=== PATIENT | male | born 1945 ===

== ENCOUNTER 2017-09-17 06:52 | Day surgery (SDC) | payer MEDICARE ==
[2017-09-12 10:34] VITALS: BMI 23.3
[2017-09-17 08:18] LABS: BASO # 0.01 K/mm3 (0.0-2.0); BASO % 0.2 % (0.0-3.0); EOS # 0.2 (0.0-0.7); EOS % 3.4 % (1.5-5.0); GRAN # 2.93 (1.4-6.5); HEMOGLOBIN 12.7 g/dL (14.0-18.0); LYMPH # 2.4 (1.2-3.4); LYMPH % 39.7 % (22.0-35.0); MEAN CELL VOLUME 92.9 fl (80.0-105.0); MEAN CORPUSCULAR HEMOGLOBIN 31.1 pg (25.0-35.0); MEAN CORPUSCULAR HGB CONC 33.5 g/dl (31.0-37.0); MEAN PLATELET VOLUME 11.5 fl (7.0-11.0); MONO # 0.5 (0.1-0.6); MONO % 8.7 % (1.0-6.0); RBC 4.08 10^6/uL (3.5-6.1); RED CELL DISTRIBUTION WIDTH 12.7 % (11.5-14.5); WHITE BLOOD COUNT 6.1 10^3/ul (4.5-11.0)
[2017-09-17 08:29] LABS: BLOOD UREA NITROGEN 16 mg/dL (7-21); GFR AFRICAN-AMERICAN > 60; GFR NON-AFRICAN AMERICAN > 60; HDL CHOLESTEROL 39 mg/dL (29-60)
[2017-09-17 08:31] LABS: INR 1.14 (0.93-1.08); PARTIAL THROMBOPLASTIN TIME 26.9 Seconds (25.1-36.5); PROTHROMBIN TIME 13.2 SECONDS (9.4-12.5)
[2017-09-17 08:40] LABS: LDL CHOLESTEROL 62 mg/dL (0-129)
--- NOTE | 2017-09-17 08:40 | HP ---
REASON FOR ADMISSION: Pacemaker generator change, end of the life of pacemaker. BRIEF CLINICAL HISTORY: This is a 72-year-old male with the past medical history significant for open heart surgery, status post CABG x2, sick sinus syndrome, status post pacemaker, aortic aneurysm, who lost follow up after 2008 came back on 10/2016, underwent echo and stress test that was essentially negative. Recently interrogation pacemaker revealed end of the life of pacemaker where patient was scheduled for elective pacemaker generator change. Denies chest pain, shortness of breath or any palpitation. PAST MEDICAL HISTORY: Significant for coronary artery disease, diabetes, hypertension, hyperlipidemia, history of coronary artery disease, status post CABG twice, history of pacemaker, status post end of life of pacemaker. PREVIOUS CARDIAC WORKUP: As follows; Holter dated 11/06/2017, it shows normal sinus, heart rate 60 to 80. No significant arrhythmia noted. Patient underwent stress test on 12/21/2016 that showed an ejection fraction of 55%. No ischemia. No change from before. Patient underwent echocardiogram on 11/03/2016, that shows ejection fraction 50%, mild MR, trace to mild AR and trace to mild tricuspid regurgitation. Patient underwent SONIA, PVR dated 12/27/2016, no evidence of peripheral arterial disease. REVIEW OF SYSTEMS: As per HPI. CURRENT MEDICATIONS: Patient is taking ferrous sulfate one p.o. daily; Zetia 10 mg daily; atorvastatin 10 mg daily; aspirin 81 mg daily; ascorbic acid 1000 g daily; vitamin A1 tablet daily; metoprolol 25 mg daily; levothyroxine daily; Tambocor 50 mg daily, this is flecainide; tramadol 50 mg daily; metformin 500 mg daily; amlodipine, Norvasc 10 mg daily; meloxicam 50 mg daily; losartan 100 mg daily. PHYSICAL EXAMINATION: As follows; VITAL SIGNS: Height of the patient 5 feet 5 inches, weight of the patient is 140 pounds, body mass index 23.3 kg/m2. Rest of the examination as follows; heart rate 60, blood pressure 122/59. HEENT: PERRLA. Extraocular muscles are intact. NECK: Supple. No carotid bruits or thyromegaly. CHEST: Clear to auscultation. HEART: S1 and S2 regular. ABDOMEN: Soft. EXTREMITIES: Clubbing and cyanosis negative. IMPRESSION: A 72-year-old male with past medical history significant for coronary artery disease, status post coronary artery bypass graft twice, history of pacemaker, status post end of life of the pacemaker, diabetes, hypertension, hyperlipidemia, admitted for pacemaker generator change because of the end of the life of pacemaker. RECOMMENDATION: We will change the pacemaker. Further recommendation after the pacemaker generator change. We will follow with you. Thank you Dr. Delaney for providing us the opportunity in taking care of the patient, . Argelia Fischer MD
[2017-09-17] MEDS ORDERED: Lidocaine 2% Inj (20ml) ONE (09:28)
[2017-09-17] MEDS ORDERED: Midazolam 2 MG/2 ML VIAL ONE (09:55)
[2017-09-17 11:16] VITALS: O2SAT 96
[2017-09-17] MEDS ORDERED: Sodium Chloride 0.9% 1,000 ML IV SCH (11:30)
--- NOTE | 2017-09-17 11:31 | CARD ---
APPROVED REPORT EKG Measurement Heart [id number] <Conclusion> Predominently V. Paced rhythm
[2017-09-17 12:01] VITALS: RESP 20; TEMP 97.4
--- NOTE | 2017-09-17 12:07 | CPOSTOP ---
DATE: 09/17/2017 CARDIOVASCULAR LAB POSTPROCEDURE NOTE DICTATING PHYSICIAN: Argelia Fischer MD SENIOR PRODUCT DEVELOPMENT SCIENTIST: Sue land survey technician. TYPE OF ANESTHESIA: Moderate conscious sedation. PRE-PROCEDURE DIAGNOSIS: End of the life of the pacemaker. PROCEDURE PERFORMED: Pacemaker generator change. FINDINGS: End of the life of pacemaker, normal functioning pacemaker lead. FINAL DIAGNOSIS: End of the life of pacemaker. VASCULAR ACCESS SITE: Left side of the chest. CLOSURE DEVICE: Dermabond applied. TOTAL RADIATION DOSE: 60.26 milligray unit. TOTAL FLUORO TIME: 0.2 minute. Argelia Fischer MD
[2017-09-17 12:26] VITALS: BP 110/53; PULSE 66
--- NOTE | 2017-09-17 13:10 | CARD ---
APPROVED REPORT EKG Measurement Heart [id number]-19 [id number] <Conclusion> Electronic atrial pacemaker: 100% A. Paced Rightward axis Nonspecific intraventricular block Cannot rule out Anterior infarct, age undetermined STTW changes c/w ischemia Prolonged QTc
--- NOTE | 2017-09-17 15:47 | CARD ---
APPROVED REPORT HISTORY The Patient is a 72 year-old male with a history of CAD, S/p PPM and end of Life of PPM PROCEDURES Repalcement of Dual chamber PPM INDICATIONS End of life of PPM CONSCIOUS SEDATION AGENTS Versed Fentanyl IMPLANTED DEVICES Medtronic AGUSTIN IS-1 EXPLANTED DEVICES Medtronic OPERATIVE NOTE The patient was brought to the Cardiac Catheterization Laboratory in a fasting state and was prepped and draped in a sterile manner. The left subclavian region was infiltrated with 2% Lidocaine subcutaneously. A transverse incision was made in the left subclavian area. The subcutaneous pocket was opened and the pulse generator was removed. The ventricular lead wire was exposed via blunt dissection. The ventricular lead was interrogated and Atrial Lead was interogated and results are as follows P Wave...2.7 Threshold...0.9 Resistance...502 Ohms THE VENTRICULAR ELECTRODE PARAMETERS R WAVE 6.2 THRESHOLD1.6 RESISTANCE 621 setscrews firmly tightened to insure adequate contact and stability. The lead and pulse generator were placed into the subcutaneous pocket. Sharp and sponge counts were confirmed to be correct. At this time the pocket was closed subcutaneously with a Vicryl 2.0 and the skin was closed with a Vicryl 4.0 .The operative site was dressed in sterile fashion. The patient tolerated the procedure well and was transferred tot floor in stable condition. COMPLICATIONS The patient tolerated the procedure well and there were no complications associated with the procedure. CONCLUSION Successful Gen change DDDR ( Medtronic ADAPTA IS -! ) Arrangement has been made for F/u in [facility]ace maker clinic. CC; Matias Bethea MD
== END 2017-09-17 13:20 | disposition home or self-care (01) ==
LOC: CATH 06:52 → SDSVAS 06:52 → CATH 13:20
PROVIDERS: ATTEND Internal Medicine Cardiovascular Disease
DX: Z45.010 Encounter for checking and testing of cardiac pacemaker pulse generator [battery] (principal); E11.9 Type 2 diabetes mellitus without complications; I10 Essential (primary) hypertension; E78.5 Hyperlipidemia, unspecified; I25.10 Atherosclerotic heart disease of native coronary artery without angina pectoris; Z95.1 Presence of aortocoronary bypass graft; I49.5 Sick sinus syndrome; Z79.82 Long term (current) use of aspirin; Z79.84 Long term (current) use of oral hypoglycemic drugs
CPT/HCPCS: 33228; 36415; 80048; 80061; 85025; 85610; 85730; 86850; 86900; 93005; 99152; 99153; C1785; J0690; J2250; J3010; J7030 ×2